=== PATIENT | female | born 1965 | race Two or more races ===

== ENCOUNTER 2019-02-23 13:08 | Emergency (ER) | payer OTHER, SELFPAY ==
[~2019-02-23] VITALS: Ht 160 cm; Wt 67.0 kg
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
--- NOTE | 2019-02-23 13:49 | NUR ---
TASK RN: PT TAKEN TO CT IN STABLE CONDITION.
--- NOTE | 2019-02-23 14:16 | NUR ---
EKG COMPLETE. PT IN BED. REQUESTING REFILLS ON HER MEDICATIONS, AND SOMETHING FOR ANXIETY NOW. DENIES ANY FURTHER NEEDS OR CONCERNS AT THIS TIME. CALL LIGHT IN REACH.
[2019-02-23 15:40] VITALS: BP 134/65
== END 2019-02-23 16:08 | disposition home or self-care (01) ==
LOC: ED 15:40
DX: S13.4XXA Sprain of ligaments of cervical spine, initial encounter (principal); S23.3XXA Sprain of ligaments of thoracic spine, initial encounter; S33.5XXA Sprain of ligaments of lumbar spine, initial encounter; V49.9XXA Car occupant (driver) (passenger) injured in unspecified traffic accident, initial encounter; Y93.I9 Activity, other involving external motion; Y92.488 Other paved roadways as the place of occurrence of the external cause; Y99.8 Other external cause status
CPT/HCPCS: 72072; 72110; 72125; 99284